=== PATIENT | male | born 1980 | race Two or more races ===

== ENCOUNTER 2024-04-17 19:14 | Inpatient (IN) | payer BC, SELFPAY ==
[2024-04-17 19:15] VITALS: BMI 32.9
--- NOTE | 2024-04-17 19:23 | EDNOTE_ITS ---
ED Headache RME/HPI General Chief Complaint: Headache Stated Complaint: POSSIBLE TIA Time Seen by Provider: 04/17/24 19:27 Arrival date/time: 04/17/24 19:14 Limitations: no limitations RME / HPI RME / HPI Narrative: Dr. Adames's Main ED Evaluation: 43-year-old male with complaining of left lower extremity tingling that started at 2:00 yesterday afternoon. Today the patient states he had some right lower extremity tingling and right arm tingling. He was seen at the urgent care and told to come to the emergency department for possible stroke workup. Last known normal was yesterday afternoon at 2 PM. Related Data Previous Rx's ?Medication ?Instructions ?Recorded apixaban 5 mg (74 tabs) tablets in 5 mg PO BID #74 tabs 03/25/21 a dose pack (Eliquis DVT-PE Treat 30D Start) methocarbamol 500 mg tablet 500 mg PO TID #30 tabs 05/28/21 methylprednisolone 4 mg tablets in 4 mg PO QAM #21 tabs 05/28/21 a dose pack (Medrol (Luan)) Allergies Allergy/AdvReac Type Severity Reaction Status Date / Time No Known Allergies Allergy Verified 04/17/24 19:17 Review of Systems Review of Systems Systems Reviewed: All systems reviewed, normal except as documented Past Medical History Social History SMOKING STATUS: Never smoker ED Exam Narrative Physical exam: 1A: Level of Consciousness - Alert; keenly responsive + 0 1B: Ask Month and Age - Both Questions Right + 0 1C: Blink Eyes & Squeeze Hands - Performs Both Tasks + 0 2: Test Horizontal Extraocular Movements - Normal + 0 3: Test Visual Mckinney - No Visual Loss + 0 4: Test Facial Palsy (Use Grimace if Obtunded) - Normal symmetry + 0 5A: Test Left Arm Motor Drift - No Drift for 10 Seconds + 0 5B: Test Right Arm Motor Drift - No Drift for 10 Seconds + 0 6A: Test Left Leg Motor Drift - No Drift for 5 Seconds + 0 6B: Test Right Leg Motor Drift - No Drift for 5 Seconds + 0 7: Test Limb Ataxia (FNF/Heel-Wiggins) - No Ataxia + 0 8: Test Sensation - Normal; No sensory loss + 0 9: Test Language/Aphasia - Normal; No aphasia + 0 10: Test Dysarthria - Normal + 0 11: Test Extinction/Inattention - No abnormality + 0 NIHSS Score: 0 General Limitations: Present no limitations General appearance: Present alert and other (Sitting in wheelchair well-dressed no acute distress) Head Head exam: Present atraumatic Eye Eye exam: Present normal appearance, PERRL and EOMI ENT ENT exam: Present normal exam and mucous membranes moist Neck Neck exam: Present normal inspection and full ROM; Absent tenderness or lymphadenopathy Chest Chest inspection: Present normal inspection and symmetric chest wall rise Respiratory Respiratory exam: Present normal lung sounds bilaterally Cardiovascular Cardiovascular exam: Present regular rate, normal rhythm and normal heart sounds Abdominal Exam Abdominal exam: Present soft and normal bowel sounds Extremities Exam Extremities exam: Present normal inspection and full ROM Back Exam Back exam: Present normal inspection and full ROM Neurological Exam Neurological exam: Present alert, oriented X3 and CN II-XII intact Psychiatric Psychiatric exam: Present normal affect and normal mood; Absent depressed, agitated or anxious Skin Skin exam: Present warm, dry, intact and normal color Course Quality Measures none Orders Category Date Time Status Bedside Blood Glucose NOW Care 04/17/24 19:27 Active COVID-19 Screening Questionnaire NOW Care 04/18/24 00:00 Active 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 Worker Supervisor NOW Care 04/17/24 19:27 Active Continuous Pulse Oximetry NOW Care 04/17/24 19:27 Completed Decision to Admit X1 Care 04/18/24 00:00 Active EKG (ED ONLY) *Do not use* NOW Care 04/17/24 19:28 Completed In and Out Catheter NEEDED Care 04/17/24 19:27 Active Insert IV NOW Care 04/17/24 19:27 Active NIH Stroke Scale now Care 04/17/24 19:27 Active NPO NOW Care 04/17/24 19:27 Active Nurse Swallow Screen x1 Care 04/17/24 19:27 Active Consult to Neurology / Tele-Neurology Routine Cons 04/17/24 19:[address] angio stroke protocol Stat Exams 04/17/24 19:[address] stroke protocol Stat Exams 04/17/24 19:27 Completed EKG (ED Only) Stat Exams 04/17/24 19:27 Draft CBC Stat Lab 04/17/24 19:42 Completed Comprehensive Metabolic Panel Stat Lab 04/17/24 19:42 Completed Drug Screen,Urine Stat Lab 04/17/24 19:27 Ordered Magnesium Stat Lab 04/17/24 19:42 Completed Partial Thromboplastin Time Stat Lab 04/17/24 19:42 Completed Prothrombin Time with INR Stat Lab 04/17/24 19:42 Completed Troponin I Stat Lab 04/17/24 19:42 Completed Ondansetron Inj [Zofran Inj] Med 04/17/24 19:27 Active 4 mg IV Q4HR PRN Oxygen Delivery NOW RT 04/17/24 19:27 Active Vital Signs Vital signs: Vital Signs Temperature 98.5 F 04/17/24 19:36 Pulse Rate 67 04/17/24 19:36 Respiratory Rate 18 04/17/24 19:36 Blood Pressure 145/81 H 04/17/24 19:36 Pulse Oximetry (%) 96 04/17/24 19:36 Oxygen Delivery Method Room Air 04/17/24 19:36 Headache MDM Narrative MDM Narrative:: Differential diagnosis includes electrolyte normality, dehydration, hyper- or hypoglycemia, TIA, stroke, altered tenet neurological type symptoms to include multiple sclerosis, rash, Patient data External records reviewed:: [facility] previous records (Per chart review, patient has no relevant previous ED visits.) Clinical information provided by:: patient Social determinants that could affect healthcare access:: none How is presenting disease/condition affected by chronic disease/condition?: no chronic disease Evaluation data The following diagnostics were reviewed and interpreted by me:: lab results, radiology exam(s) and EKG tracing(s) Lab and/or radiology exams considered but not ordered:: none Interpretation Summary: CBC is normal, CMP is normal, PT and INR are normal, PTT is normal, according to my interpretation. EKG done at 1937, NSR, rate of 75, RBBB, no ST elevations or depressions, no STEMI, according to my interpretation. [facility] Report Signed Patient: KATHY DUMONT [facility]. Record#: [id number] Birthdate: 1980 Age/Sex: 43 / M Location: [facility] Attending Dr: Ordering Physician: Mara Adames MD Date of Service: 04/17/24 Procedure(s): CT stroke protocol Accession Number(s): [id number] cc: Dhaval Fernandez MD; Mara Adames MD~ Examination: CT brain head without contrast. 2-D sagittal coronal reconstructions Date and time of exam:April 17, 2024 at 1948 hrs. Indications: Stroke alert, onset extremity paresthesias, lower extremities beginning 2 days ago CTDI: vol (mGy):50.7 DLP: (mGycm):1037 Technique: Multiple CT axial sections of the brain have been obtained, 5 mm slice thickness. Contrast has not been administered. 2-D sagittal, coronal reconstructions have been obtained Low dose protocols were performed. One or more of the following dose reduction techniques were used; automated exposure control, adjustment of the mA and/or KV according to patient size, use of iterative reconstruction technique. Findings: No significant ventricular enlargement. Intra-axial or extra-axial hemorrhage density is not seen. No mass effect or midline shift Basal cisterns are not remarkable. Fourth ventricle is midline. Cranial vault intact. Impression: Negative for acute hemorrhage, mass effect or midline shift As clinically warranted, brain MRI MRA, stroke protocol, would best assess for demyelinating disease, acute ischemic change Dictated By: Dhaval Fernandez MD Signed By: <Electronically signed by Dhaval Fernandez MD in OV> 04/17/241954 [facility] Report Signed Patient: KATHY DUMONT [facility]. Record#: [id number] Birthdate: 1980 Age/Sex: 43 / M Location: [facility] Attending Dr: Ordering Physician: Mara Adames MD Date of Service: 04/17/24 Procedure(s): CT angio stroke protocol Accession Number(s): [id number] cc: Dhaval Fernandez MD; Chang Fox MD; Mara Adames MD~ Examination: CTA carotids with intravenous contrast CTA brain, head with intravenous contrast. 2-D sagittal, coronal reconstructions. 3-D reconstructions. Exam date and time: April 17, 2024 1951 hrs. Indications: Stroke alert, lower extremity paresthesias focal neurologic deficit today CTDI: vol (mGy) 10.8 DLP: (mGycm) 540 Technique: Multiple CTA axial brain, head carotid images post intravenous contrast injection 75 cc, Isovue-370. 2-D sagittal, coronal reconstructions. 3-D reconstructions, 3-D post processing including vascular maximum intensity projection images. Low dose protocols were performed. One or more of the following dose reduction techniques were used; automated exposure control, adjustment of the mA and/or KV according to patient size, use of iterative reconstruction technique. Findings: The study is severely limited secondary to contrast bolus timing error The timing emphasizes the venous phase and there is significantly reduced opacification of the neck and cerebral vessels No gross carotid or vertebral stenoses in the neck There is less filling on the 3-D images in the left middle cerebral artery distribution which is not appreciated on the axial images Impression: The study is severely limited secondary to contrast bolus timing error Dictated By: Dhaval Fernandez MD Signed By: <Electronically signed by Dhaval Fernandez MD in OV> 04/17/242119 Medications / Prescriptions Medications or Prescriptions considered but not ordered:: none Medication administrations:: Medication Administration History Ondansetron HCl (Ondansetron Inj 2 Mg/Ml Inj 2 Ml) 4 mg IV Q4HR PRN PRN Reason: NAUSEA OR VOMITING Stop: 05/17/24 19:26 see above Consultations Consultation(s) initiated? (list below): Yes Consultation #1 (Physician, Specialty, Details): Discussed case with [Dr. Ramachandran] from [teleneurology] regarding [consultation]. Discussed patients ED course, exam findings, labs, and radiology results. Recommends admitting the patient for a stroke work-up. Consultation #2 (Physician, Specialty, Details): Discussed case with [the resident physician, attending Dr. Sanchez] from Hospitalist service regarding admission. Discussed patients ED course, exam findings, labs, and radiology results. The Hospitalist [agrees, declines] to accept the patient for admission. Time: 00:07 Diagnosis Differential diagnosis headache: other (see above in MDM) Most likely diagnosis given after review of the tests above:: see below Admission Indicated Admission indicated?: indicated Admission Request Was there a request for admission?: Yes Admission Attestation Admission request attestation: Discussed case with [] from Hospitalist service regarding admission. Discussed patients ED course, exam findings, labs, and radiology results. The Hospitalist [agrees,declines] to accept the patient for admission. Disposition Plan Disposition Plan: Admit Critical Care Time Critical Care Time Critical Care Time: Yes Total Critical Care Time (min.): 40 Attestation: The high probability of sudden, clinically significant deterioration in the patient?s condition required the highest level of my preparedness to intervene urgently. The services I provided to this patient were to treat and/or prevent clinically significant deterioration. Services included the following: chart data review, reviewing nursing notes and/or old charts, documentation time, executive consultant collaboration regarding findings and treatment options, medication orders and management, direct patient care, vital sign assessments and ordering, interpreting and reviewing diagnostic studies and lab tests. Aggregate critical care time includes only time during which I was engaged in work directly related to the patient?s care, as described above, whether at bedside or elsewhere in the Emergency Department. It did not include time spent performing other reported procedures or the services of residents, students, nurses or physician assistants. Discharge Plan Prescriptions/Referrals Prescriptions/Med Rec: No Action Eliquis DVT-PE Treat 30D Start 5 mg (74 tabs) tablets,dose pack 5 mg PO BID Qty: 74 0RF Rx Instructions: 10 mg twice daily for first 7 days, then 5 mg twice daily. methocarbamol 500 mg tablet 500 mg PO TID Qty: 30 0RF methylprednisolone [Medrol (Luan)] 4 mg tablets,dose pack 4 mg PO QAM Qty: 21 0RF Rx Instructions: follow instructions Referrals: Chang Fox([facility])MD [Primary Care Provider] - In 1 week Patient/Caregiver Discharge Instructions Print Language: Maori
--- NOTE | 2024-04-17 19:27 | XR_ITS ---
Examination: CT brain head without contrast. 2-D sagittal coronal reconstructions Date and time of exam:April 17, 2024 at 1948 hrs. Indications: Stroke alert, onset extremity paresthesias, lower extremities beginning 2 days ago CTDI: vol (mGy):50.7 DLP: (mGycm):1037 Technique: Multiple CT axial sections of the brain have been obtained, 5 mm slice thickness. Contrast has not been administered. 2-D sagittal, coronal reconstructions have been obtained Low dose protocols were performed. One or more of the following dose reduction techniques were used; automated exposure control, adjustment of the mA and/or KV according to patient size, use of iterative reconstruction technique. Findings: No significant ventricular enlargement. Intra-axial or extra-axial hemorrhage density is not seen. No mass effect or midline shift Basal cisterns are not remarkable. Fourth ventricle is midline. Cranial vault intact. Impression: Negative for acute hemorrhage, mass effect or midline shift As clinically warranted, brain MRI MRA, stroke protocol, would best assess for demyelinating disease, acute ischemic change
--- NOTE | 2024-04-17 19:27 | XR_ITS ---
Examination: CTA carotids with intravenous contrast CTA brain, head with intravenous contrast. 2-D sagittal, coronal reconstructions. 3-D reconstructions. Exam date and time: April 17, 2024 1951 hrs. Indications: Stroke alert, lower extremity paresthesias focal neurologic deficit today CTDI: vol (mGy) 10.8 DLP: (mGycm) 540 Technique: Multiple CTA axial brain, head carotid images post intravenous contrast injection 75 cc, Isovue-370. 2-D sagittal, coronal reconstructions. 3-D reconstructions, 3-D post processing including vascular maximum intensity projection images. Low dose protocols were performed. One or more of the following dose reduction techniques were used; automated exposure control, adjustment of the mA and/or KV according to patient size, use of iterative reconstruction technique. Findings: The study is severely limited secondary to contrast bolus timing error The timing emphasizes the venous phase and there is significantly reduced opacification of the neck and cerebral vessels No gross carotid or vertebral stenoses in the neck There is less filling on the 3-D images in the left middle cerebral artery distribution which is not appreciated on the axial images Impression: The study is severely limited secondary to contrast bolus timing error
--- NOTE | 2024-04-17 19:27 | EKG_ITS ---
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
--- NOTE | 2024-04-17 19:28 | PC.NURSE ---
stroke consult Case # [id number]
[2024-04-17 19:36] VITALS: BP 145/81; PULSE 67; RESP 18; TEMP 36.9; O2SAT 96
[2024-04-17 19:52] LABS: Basophils % (Auto) 0 % (0-2.5); Eosinophils # (Auto) 0.1 Thou/mm3 (0.0-0.5); Eosinophils % (Auto) 2 % (0-10); Hemoglobin 13.6 g/dL (13.5-16.0); Immature Granulocytes % (Auto) 0 % (0-0); Immature Granulocytes Auto 0.02 Thou/mm3 (0.00-0.00); Lymphocytes # (Auto) 2.3 Thou/mm3 (1.0-4.8); Lymphocytes % (Auto) 33 % (10-50); Mean Corpuscular HGB Conc 34.9 g/dl (31.0-37.0); Mean Corpuscular Hemoglobin 30.9 pg (25.0-35.0); Mean Corpuscular Volume 89 fL (80-100); Monocytes # (Auto) 0.5 Thou/mm3 (0.0-0.8); Monocytes % (Auto) 8 % (0-12); Neutrophils % (Auto) 57 % (37-80); Nucleated Red Blood Cell % 0 /100 WBC (0); Platelet Count 242 Thou/mm3 (140-440); RDW Standard Deviation 37.5 fL (35.1-43.9)
[2024-04-17 20:10] LABS: Alanine Aminotransferase 37 U/L (10-49); Albumin, Serum 4.3 gm/dL (3.5-5.0); Albumin/Globulin Ratio 1.7 (1.2-2.2); Alkaline Phosphatase 89 U/L (46-116); Anion Gap 8 (7-16); Aspartate Amino Transferase 29 U/L (0-34); BUN/Creatinine Ratio 12 Ratio (12-20); Bilirubin,Total 0.3 mg/dL (0.3-1.2); Blood Urea Nitrogen 12 mg/dL (9-23); Calcium 9.4 mg/dL (8.3-10.6); Calcium (Corrected) 9.4 mg/dL (8.5-10.1); Carbon Dioxide 26.2 mMol/L (20.0-31.0); Chloride 104 mMol/L (98-107); Estimated Creatinine Clearance 119.8 mL/min (>60); Globulin 2.6 gm/dL (2.3-3.5); Glucose 135 mg/dL (74-106); Osmolality,Calculated 277 (275-295); Sodium 138 mMol/L (136-145); Total Protein 6.9 gm/dL (5.7-8.2); Troponin I < 0.020 ng/mL (0.0-0.045); eGFR > 60 See Note
[2024-04-17 20:14] VITALS: BP 134/78; PULSE 68; RESP 18; TEMP 36.7; O2SAT 97
[2024-04-17 20:16] LABS: INR 0.9 (0.9-1.3); Partial Thromboplastin Time 23.6 Seconds (22.0-36.0); Prothrombin Time 9.8 Seconds (9.0-12.2)
--- NOTE | 2024-04-17 21:56 | ESCONSULT_ITS ---
Tele Neuro Consultation Consultation Date 04/17/24 Most Recent Vital Signs Last Vital Signs Temp 98.1 F 04/17/24 20:14 Pulse 68 04/17/24 20:14 Resp 18 04/17/24 20:14 BP 134/78 H 04/17/24 20:14 Pulse Ox 97 04/17/24 20:14 O2 Del Method Room Air 04/17/24 20:14 Laboratory-Coagulation Panel PT 9.8 Seconds (9.0-12.2) 04/17/24 19:42 INR 0.9 (0.9-1.3) 04/17/24 19:42 APTT 23.6 Seconds (22.0-36.0) 04/17/24 19:42 Consultation Narrative [facility] Tele[facility]urology Consult Services Stat Consult Patient Name:???Brady Cabrera Sr Date of :???1980 Identification Number:??? Date of Service:???04/17/2024 19:28:02 Diagnosis:?G45.9 - Transient cerebral ischemic attack, unspecified Impression 43M with PMHx DVT previously on Eliquis, BPPV, presents due to transient neurological symptoms. Patient says he had part of a [employer] energy drink, was talking to his , then suddenly felt weird, with tingling started on his right leg, up to his right side, then to R hand which felt very numb, then to R face, then started feelign numbness L leg, and then ascended, then with severe headache. He went to work, at which point his speech became abnormal, he couldn't get his words out, garbled. All symptoms then resolved, within 45 minutes, and have not reoccurred. He came in today at his 's urging and at recommendation of an urgent care doctor. Never had these symptoms before. He never gets headaches. CT complete and read as negative. CTA non-diagnostic. Exam is WNL. Presentation is concerning for seizure, vs stroke or high-risk TIA. Will need admission for workup including brain and vessel imaging. ? Recommendations: Our recommendations are outlined below. Diagnostic Studies :MRI head with and without contrast MRA head without contrast MRA neck with contrast Routine EEG Laboratory Studies :Lipid panelI orderedHemoglobin A1c TSH Antithrombotic Medication :Statins for LDL goal less than 70 ASA 325mg and Plavix 300mg PO; followed by ASA 81mg and PLavix 75 mg daily for 20 days Nursing Recommendations :IV Fluids, avoid dextrose containing fluids, Maintain euglycemia Neuro checks q4 hrs x 24 hrs and then per shift Head of bed 30 degrees Continue with Telemetry Neurochecks Q4 hours Consultations :Recommend Speech therapy if failed dysphagia screen Physical therapy/Occupational therapy DVT Prophylaxis :Lovenox or LMW Heparin Disposition :Neurology will follow Outpatient Neurology follow up in 3-6 weeks Metrics: Dispatch Time: 04/17/2024 19:28:02 Callback Response Time: 04/17/2024 19:30:12 ED Physician not notified of diagnostic impression and management plan because not available CT HEAD: As Per Radiologist CT Head Showed No Acute Hemorrhage or Acute Core Infarct Chief Complaint: left sided leg weakness and arm weakness, then today tingling/weakness moved also to the right side. Now bilateral weakness/tingling in BUE & BLE. TLKW: 2pm yesterday >24hours ago Hx. of DVT, on Eliquis CTH - ordered History of Present Illness:Patient is a 43 year old Male. 43M with PMHx DVT previusly on Eliquis, BPPV, presents with progressive weakness and numbness. Symptoms began yesterday at 2pm involving LUE and LLE, now bilateral involving all extremities. SOB yesterday, no chest pain, headache, no diarrhea, no recent cold or infection. Patient says he had part of a [employer] energy drink, was talking to his , then suddenly felt weird, and then tingling started on his right leg, up to his right side, then to R hand which felt very numb, then to R face, then started feelign numbness L leg, and then ascended, then with severe headache, then his speech became abnormal, he couldn't get his words out, garbled. He then went back to normal completely. He came in today at his 's urging and at recommendation of an urgent care doctor. Never had these symptoms before. He never gets headaches. CT complete and read as negative. CTA non-diagnostic. ? Past Medical History: ?There is no history of Atrial Fibrillation ?There is no history of Stroke ?There is no history of Seizures Medications: No Anticoagulant use? Antiplatelet use:?Yes?aspirin Reviewed EMR for current medications Allergies:? NKDA Social History: Smoking: No Family History: There is no family history of premature cerebrovascular disease pertinent to this consultation ROS : 14 Points Review of Systems was performed and was negative except mentioned in HPI. Past Surgical History: There Is No Surgical History Contributory To Today?s Visit ? Examination: BP(134/78),?Pulse(68),?Blood Glucose(130) 1A: Level of Consciousness - Alert; keenly responsive?+ 0 1B: Ask Month and Age - Both Questions Right?+ 0 1C: Blink Eyes & Squeeze Hands - Performs Both Tasks?+ 0 2: Test Horizontal Extraocular Movements - Normal?+ 0 3: Test Visual Mckinney - No Visual Loss?+ 0 4: Test Facial Palsy (Use Grimace if Obtunded) - Normal symmetry?+ 0 5A: Test Left Arm Motor Drift - No Drift for 10 Seconds?+ 0 5B: Test Right Arm Motor Drift - No Drift for 10 Seconds?+ 0 6A: Test Left Leg Motor Drift - No Drift for 5 Seconds?+ 0 6B: Test Right Leg Motor Drift - No Drift for 5 Seconds?+ 0 7: Test Limb Ataxia (FNF/Heel-Wiggins) - No Ataxia?+ 0 8: Test Sensation - Normal; No sensory loss?+ 0 9: Test Language/Aphasia - Normal; No aphasia?+ 0 10: Test Dysarthria - Normal?+ 0 11: Test Extinction/Inattention - No abnormality?+ 0 NIHSS Score:?0 This consult was conducted in real time using interactive audio and video technology. Patient was informed of the technology being used for this visit and agreed to proceed. Patient located in hospital and provider located at home/office setting. Patient is being evaluated for possible acute neurologic impairment and high probability of imminent or life - threatening deterioration.I spent total of 35 minutes providing care to this patient, including time for face to face visit via telemedicine, review of medical records, imaging studies and discussion of findings with providers, the patient and / or family. Dr Mignon Ramachandran [facility] For Inpatient follow-up with [facility] physician please call [facility] at . As we are not an outpatient service for any post hospital discharge needs please contact the hospital for assistance. If you have any questions for the [facility] physicians or need to reconsu lt for clinical or diagnostic changes please contact us via [facility] at .
[2024-04-17 22:32] VITALS: BP 127/69; PULSE 56; RESP 16; O2SAT 97
[2024-04-18] VITALS (9 sets, daily range): BP systolic 104–132; BP diastolic 64–81; PULSE 51–70; RESP 14–25; TEMP 36.1–36.9; O2SAT 97–99
--- NOTE | 2024-04-18 | XR_ITS ---
Examination: MRI brain without intravenous contrast. Date and time of exam: April 18, 2024 1022 hrs. Indications: Slurred speech, right leg numbness headache onset today, stroke alert April 17, 2024, onset focal neurologic deficit beginning April 15, 2024 Technique: Multiple axial and sagittal images of the brain obtained. Siemens high-resolution 1.5 Aniyah short bore scanners utilized. Sagittal sections, T1-weighted, TR 500, TE 14, are performed. Axial sections proton-density and T2-weighted have been obtained. Inversion recovery axial images, TR 9, 260, TE 111, TI 2500. Diffusion weighted images, axial sections, TR 4800, TE 128, B value 1000 Axial sections, ADC map, TR 4800, TE 128 Findings: Enlargement of the sella turcica is not present. The optic chiasm and infundibular are not remarkable. Prepontine and interpeduncular cisterns are not enlarged. There is no localized enlargement of the medulla or chirag. Fourth ventricle and cerebellar tonsils appear normal in position. No subacute area of hemorrhage density is seen. Mass in the cerebellopontine angle region is not evident. Globes symmetrical. Orbital musculature including medial lateral rectus muscles do not exhibit abnormality. Diffusion-weighted images demonstrate no focus of restricted diffusion. Increased white matter signal evident, scattered punctate foci increased signal in the frontal parietal white matter, for instance FLAIR images 18, 19, 20 Mass effect upon the ventricular system is not identified. Impression: Scattered punctate foci increased signal in the cerebral white matter, demyelinating disease pattern
--- NOTE | 2024-04-18 00:48 | PD.RESHP ---
Documentation for date of: 04/18/24 HPI History of Present Illness Chief complaint: Rt sided Numbenss and slurred speech for 45 minutes History of present illness: HPI: A 43-year-old male patient with past medical history of DVT in 2020 was on Eliquis for 1 year, presented to the ED due to sudden onset of right leg numbness that started suddenly and continued to worsen to involve with right upper extremity. Patient reported that the symptoms started at 2:30 PM on . He reported that the numbness continued to worsen to involve his right upper extremity and also his face associated with headache and slurred speech. Patient reported that the numbness also continued to spread to his left upper extremity. He reported that his symptoms started after he took a sip of his energy drink which she drink every day with food. Patient denied any difficulty swallowing, blurry vision, tinnitus, loss of balance with dizziness. Patient denied any nausea or vomiting denied any seizure activity or loss of consciousness. Patient went to the urgent care and which recommended him to come to the ED to rule out stroke. On review of other system patient reported that he has some episodes of heart racing however he denied any chest pain or shortness of breath. Patient denied any fever or chills, denied any abdominal pain and denied any cough or congestion. Home medications: Mushroom Gummies ED course: At the ED patient was found to have blood pressure of 145/81, other vitals within normal limits. CBC within normal values, coagulation study within normal limits, biochemistry was only significant of blood glucose of 135. Urine drug screen still pending. CT brain was negative for any hemorrhage or mass effect. CT head and neck angiography was limited because of timing air. EKG was only significant for right bundle branch block ischemic changes and no arrhythmias. Teleneurologist consultation was done and which they recommended to do stroke workup and also to rule out seizure episodes. For that reason the recommended MRI brain with and without contrast and MRA head and neck without contrast. They also recommended EEG for further evaluation. PMH:Remote history of DVT in the right leg resolved with Eliquis Social hx: Alcohol:Denied Tobacco:Denied Illicit drugs:Denied Allergies:NKA Review of Systems Review of Systems Systems Reviewed: All systems reviewed, normal except as documented Exam Vital Signs Temp Pulse Resp BP Pulse Ox O2 Del Method 98.1 F 52 L 16 132/70 H 98 Room Air 04/17/24 20:14 04/18/24 00:15 04/18/24 00:15 04/18/24 00:15 04/18/24 00:15 04/18/24 00:15 Narrative Exam GEN: AOx3, able to speak full sentences HEENT: NC/AC, PERRLA, oral mucosa moist, neck supple CVS: RRR, S1-S2 present, no murmurs appreciated RESP: CTAB GI: soft,non distended, non tender, NBS MSK: able to move all 4 limbs, no lower extremity edema SKIN: warm and dry 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 Results: Labs 04/17/24 19:42 04/17/24 19:42 Labs: Short CBC 04/17/24 Range/Units 19:42 WBC 7.0 (3.8-10.6) Thou/mm3 Hgb 13.6 (13.5-16.0) g/dL Hct 39.0 L (41.0-53.0) % Plt Count 242 (140-440) Thou/mm3 BMP 04/17/24 19:42 Sodium 138 Potassium 4.0 Chloride 104 Carbon Dioxide 26.2 BUN 12 Creatinine 1.0 Glucose 135 H Calcium 9.4 Cardiac Enzymes 04/17/24 Range/Units 19:42 Troponin I < 0.020 (0.0-0.045) ng/mL Liver Function 04/17/24 Range/Units 19:42 Total Bilirubin 0.3 (0.3-1.2) mg/dL AST 29 (0-34) U/L ALT 37 (10-49) U/L Alkaline Phosphatase 89 (46-116) U/L Albumin 4.3 (3.5-5.0) gm/dL Quality Measures Quality Measures none Medications Home Medications and Allergies Allergies Allergy/AdvReac Type Severity Reaction Status Date / Time No Known Allergies Allergy Verified 04/17/24 19:17 Visit Medications Ondansetron HCl (Ondansetron Inj 2 Mg/Ml Inj 2 Ml) 4 mg IV Q4HR PRN PRN Reason: NAUSEA OR VOMITING Stop: 05/17/24 19:26 Assessment & Plan Plan A 43-year-old male patient with past medical history of DVT in 2020 was on Eliquis for 1 year, presented to the ED due to sudden onset of right leg numbness that started suddenly and continued to worsen to involve with right upper extremity. Patient was admitted to R/o stroke vs Seizure episode. Assessment and plan #Stroke versus TIA R/O #Seizure Patient presented with numbness that started in the right side of his leg, continue to worsen to right upper extremity and his face. Continue to spread to his left side of the body associated with slurred speech and headache. CT brain was negative for any hemorrhage or mass effect Symptoms resolved within 45 minutes, History of palpitation, remote history of DVT at age less than 40 years old CMP and CBC within normal limits Patient was started on aspirin 325 x 1, Plavix 300 mg p.o. x 1 Plan ? Teleneurologist was consulted recommended to admit the patient for stroke versus seizures rule out ? MR brain, MRA brain, ordered still pending ? EEG was ordered ? In-house neurologist Dr Thorpe was consulted, pending recommendations ? Aspirin 81 mg p.o. daily, Plavix 75 mg p.o. daily ? Atorvastatin 80 mg p.o. daily ? Seizures precautions, neurocheck every 4 hours for 1 day then change to every shift ? Echo with bubble study was ordered ? Keep head elevated above 30 degrees ? Keep patient euglycemic, euthermic give Tylenol if potassium pressure above 100.5 ?IV NS 75 mL/h ?Speech and physical therapist was ordered #History of palpitation #Right bundle branch block Patient reported some episodes of palpitation however denied any dizziness or loss of balance or chest pain Plan ? Telemetry monitoring ?Consider consulting [employer] operations consultant if clinically warranted #History of DVT in 2020 Patient reported having DVT in his right leg and provoked, used Eliquis for 1 year and was discontinued by the [employer] operations consultant Dr. Azar Plan ? Continue monitoring Hospital Maintenance: FEN: Regular diet after passing bedside swallow eval DVT ppx: Heparin subcu GI ppx: Protonix IV lines: PIV Teresa: None Code status: Full code Dispo: Telemetry - Patient's plan and care discussed with my attending, Dr. Daniel Dowd MD Internal Medicine PGY-2 Attending Provider Attestation/Addendum 43-year-old male with past medical history of DVT previously on Eliquis in 2020 presented to the ED with chief complaint right upper and lower extremity numbness that have been worsening for the last few days with associated headache and slurred speech. Patient went to urgent care and was recommended to come to the ED for stroke rule out. CT head was completed and negative, CTA head and neck showed no acute lesions or stenoses. Teleneurology was consulted in the ED and recommended further workup for seizure versus stroke. At the time of my evaluation, NIHSS score of 0. Will admit patient for further stroke versus seizure workup including echo, MRI of brain, EEG and will be initiated on aspirin and Plavix as per teleneurology recommendations. Chauncey Sanchez MD
--- NOTE | 2024-04-18 00:58 | ECHO_ITS ---
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 16 - 28 cm?/m? Ascending Aorta Diameter 2.6 cm M-MODE Aortic Root Diameter MM 2.8 cm LA Systolic Diameter MM 4.0 cm LA Ao Ratio MM 1.4 AV Cusp Separation MM 2.3 cm DOPPLER AV Peak Velocity 138.0 cm/s AV Peak Gradient 7.6 mmHg AV Mean Gradient 4.0 mmHg AV Velocity Time Integral 30.9 cm LVOT Peak Velocity 106.0 cm/s LVOT Peak Gradient 4.5 mmHg LVOT Velocity Time Integral 23.4 cm LVOT Cardiac Index 1470.6 cm?/min?m? AV Area Cont Eq vti 1.9 cm? AV Area Cont Eq pk 2.0 cm? MV Peak Velocity 70.3 cm/s MV Peak Gradient 2.0 mmHg MV Mean Velocity 40.3 cm/s MV Mean Gradient 1.0 mmHg MV Area PHT 3.7 cm? Mitral E Point Velocity 64.5 cm/s Mitral A Point Velocity 52.9 cm/s Mitral E to A Ratio 1.2 LV E' Lateral Velocity 14.1 cm/s Mitral E to LV E' Lateral Ratio 4.6 LV E' Septal Velocity 8.7 cm/s Mitral E to LV E' Septal Ratio 7.4 TR Peak Velocity 160.0 cm/s TR Peak Gradient 10.2 mmHg FINDINGS Left Ventricle Normal left ventricular size, wall thickness, systolic function with no obvious regional wall motion abnormalities. The ejection fraction is visually estimated at 60-65 %. Right Ventricle The right ventricle is normal in size and systolic function. Left Atrium The left atrium is normal by two-dimensional, color flow and Doppler imaging with no structural abnormalities, no thrombus formation present. Right Atrium The right atrium is normal by two-dimensional imaging, color flow and Doppler imaging with no struct ural abnormalities, no thrombus formation present. Atrial Septum The interatrial septum appears normal with no evidence of a shunt. Aorta The aorta is normal by two-dimensional, color flow and Doppler interrogation. Mitral Valve The mitral valve is normal by two-dimensional, color flow and Doppler interrogation. There is trace mitral valve regurgitation. Aortic Valve The aortic valve is trileaflet and normal by two-dimensional, color flow and Doppler interrogation. There is no significant aortic valve regurgitation. Tricuspid Valve The tricuspid valve is normal by two-dimensional, color flow and Doppler interrogation. There is no significant tricuspid valve regurgitation. Pulmonic Valve There is no significant pulmonic valve regurgitation. Vessels The pulmonary artery appears normal. The inferior vena cava pulmonary and hepatic veins appear katerina l. Pericardium The pericardium is normal by two-dimensional imaging. There is no significant pericardial effusion. CONCLUSIONS Negative bubble study. No evidence of PFO or ASD. Normal LV size and function. Estimated EF 60-65% Normal RV size and function Trace MR. Florence Campa (Electronically Signed) Final Date: 20 April 2024 13:41
[2024-04-18] MEDS: Aspirin 325 MG TABLET PO (01:14)
[2024-04-18] MEDS: CLOPIDOGREL BISULFATE 75 MG TABLET 300 MG PO (01:17)
[2024-04-18] MEDS: SODIUM CHLORIDE 0.9% 1000 ML 1,000 ML 75 ML IV (02:59)
[2024-04-18 05:22] LABS: Basophils % (Auto) 1 % (0-2.5); Eosinophils # (Auto) 0.1 Thou/mm3 (0.0-0.5); Eosinophils % (Auto) 2 % (0-10); Hematocrit 41.4 % (41.0-53.0); Hemoglobin 14.2 g/dL (13.5-16.0); Immature Granulocytes % (Auto) 0 % (0-0); Immature Granulocytes Auto 0.01 Thou/mm3 (0.00-0.00); Lymphocytes % (Auto) 35 % (10-50); Mean Corpuscular HGB Conc 34.3 g/dl (31.0-37.0); Mean Corpuscular Hemoglobin 30.4 pg (25.0-35.0); Mean Corpuscular Volume 89 fL (80-100); Monocytes # (Auto) 0.5 Thou/mm3 (0.0-0.8); Monocytes % (Auto) 9 % (0-12); Neutrophils % (Auto) 53 % (37-80); Nucleated Red Blood Cell % 0 /100 WBC (0); Platelet Count 220 Thou/mm3 (140-440); RDW Standard Deviation 37.7 fL (35.1-43.9); Red Blood Count 4.67 Miln/mm3 (4.50-5.90); White Blood Count 5.6 Thou/mm3 (3.8-10.6)
--- NOTE | 2024-04-18 05:36 | PC.NURSE ---
pt has been sleeping. Arouses easily. no changes.
[2024-04-18 06:00] LABS: Alanine Aminotransferase 40 U/L (10-49); Albumin, Serum 4.4 gm/dL (3.5-5.0); Albumin/Globulin Ratio 1.8 (1.2-2.2); Alkaline Phosphatase 80 U/L (46-116); Anion Gap 7 (7-16); Aspartate Amino Transferase 29 U/L (0-34); BUN/Creatinine Ratio 10 Ratio (12-20); Bilirubin,Total 0.5 mg/dL (0.3-1.2); Blood Urea Nitrogen 10 mg/dL (9-23); Calcium 9.3 mg/dL (8.3-10.6); Calcium (Corrected) 9.3 mg/dL (8.5-10.1); Carbon Dioxide 27.8 mMol/L (20.0-31.0); Cardiac Risk Estimate 4.3 RATIO (4.0-6.7); Chloride 105 mMol/L (98-107); Cholesterol 159 mg/dL (132-200); Estimated Creatinine Clearance 119.8 mL/min (>60); Globulin 2.5 gm/dL (2.3-3.5); Glucose 91 mg/dL (74-106); HDL Cholesterol 37 mg/dL (40-60); LDL Cholesterol,Calculated 105 mg/dL (0-130); Magnesium 2.1 mg/dL (1.6-2.6); Osmolality,Calculated 278 (275-295); Potassium 4.5 mMol/L (3.4-5.1); Sodium 140 mMol/L (136-145); Total Protein 6.9 gm/dL (5.7-8.2); Triglycerides 84 mg/dL (30-150); eGFR > 60 See Note
[2024-04-18 06:01] LABS: Glucose Estimated Average 103 mg/dL (80-131); Hemoglobin A1C 5.2 % Hgb (4.8-6.0)
[2024-04-18 06:04] LABS: Amphetamine/Methamp Scrn,U Negative (Negative); Barbiturate Screen,Urine Negative (Negative); Benzodiazepines Screen,Urine Negative (Negative); Benzoylecgonine Screen, Ur Negative (Negative); Fentanyl Screen,Urine Negative (Negative); Opiate Screen,Urine Negative (Negative); THC Screen,Urine Negative (Negative)
[2024-04-18] MEDS: HEPARIN SOD INJ 5000 UNIT/ML VIAL SC ×3 (06:38→21:46)
--- NOTE | 2024-04-18 07:54 | PC.NURSE ---
ASSUMED CARE AT THIS TIME, PT DENIES ANY PAIN OR DISCOMFORT AT THIS TIME, HOWEVER, REPORTS THAT HE IS HAVING NUMBNESS IN HIS LEFT BIG TOE, HOWEVER IT HAS BEEN THERE FOR MORE THAN A FEW MONTHS. VSS ON TELE CALL [facility] IN [place].
[2024-04-18] MEDS: PANTOPRAZOLE 40 MG TABLET PO (09:47)
--- NOTE | 2024-04-18 13:10 | ESPR_ITS ---
<Statement entered by Flower Corey MD - 04/21/24 14:18> I reviewed above note and agree with findings and plans. I have also personally examined the patient with medicine team and went over assessment and plan with medical team including internship coordinator and resident physician. Documentation for date of: 04/18/24 Subjective Subjective Interval history: Patient seen today at the bedside found awake, alert, oriented x 3. States no active complaints at this time, states patient's presenting symptoms have resolved. Vital signs stable at this time, lab work unremarkable. At this time patient is pending MRI brain, echo with bubble study as part of stroke workup as well as pending EEG for seizure workup. Exam Vital Signs Temp Pulse Resp BP Pulse Ox O2 Del Method 96.9 F 60 19 128/81 97 Room Air 04/18/24 12:00 04/18/24 12:00 04/18/24 12:00 04/18/24 12:00 04/18/24 12:04/18/24 12:00 Narrative Exam Physical Exam GENERAL: NAD, AAOx3 HEENT: Moist mucosa. Eyes open, symmetrical, & clear CARDIO: Heart RRR, no obvious murmurs PULM: No noted coughing/dyspnea CTA B/L, no R/W/R GI: Abdomen soft, nondistended, no pain on palpation. BSx4 SKIN/MSK/EXT: No wounds/rashes/edema/amputations, no pain on palpation. Pedal pulses present B/L NEURO: AAOx3, no focal neuro deficits, able to move all 4 extremities Objective Labs 04/18/24 04:30 04/18/24 04:30 Labs: Laboratory Results - last 24 hr 04/17/24 04/18/24 04/18/24 19:42 04:30 05:20 WBC 7.0 5.6 RBC 4.40 L 4.67 Hgb 13.6 14.2 Hct 39.0 L 41.4 MCV 89 89 MCH 30.9 30.4 MCHC 34.9 34.3 RDW Std Deviation 37.5 37.7 Plt Count 242 220 Neut % (Auto) 57 53 Lymph % (Auto) 33 35 [place] % (Auto) 8 9 Eos % (Auto) 2 2 Baso % (Auto) 0 1 Neut # (Auto) 4.0 3.0 Lymph # (Auto) 2.3 2.0 [place] # (Auto) 0.5 0.5 Eos # (Auto) 0.1 0.1 Baso # (Auto) 0.0 0.0 Immature Gran # (Auto) 0.02 H 0.01 H Absolute Nucleated RBC 0.00 0.00 Immature Gran % 0 0 Nucleated RBC % 0 0 PT 9.8 INR 0.9 APTT 23.6 Sodium 138 140 Potassium 4.0 4.5 D Chloride 104 105 Carbon Dioxide 26.2 27.8 Anion Gap 8 7 BUN 12 10 Creatinine 1.0 1.0 Estim Creat Clear Calc 119.8 119.8 eGFR > 60 > 60 BUN/Creatinine Ratio 12 10 L Glucose [address] Glu mg/dL 103 Hemoglobin A1c 5.2 Calculated Osmolality 277 278 Calcium 9.4 9.3 Corrected Calcium 9.4 9.3 Magnesium 2.0 2.1 Total Bilirubin 0.3 0.5 AST 29 29 ALT 37 40 Alkaline Phosphatase 89 80 Troponin I < 0.020 Total Protein 6.9 6.9 Albumin 4.3 4.4 Globulin 2.6 2.5 Albumin/Globulin Ratio 1.7 1.8 Triglycerides 84 Cholesterol 159 LDL Cholesterol, Calc 105 HDL Cholesterol 37 L Cholesterol/HDL Ratio 4.3 Urine Opiates Screen Negative Urine Fentanyl Screen Negative Ur Barbiturates Screen Negative U Amphetamin/Meth Scrn Negative U Benzodiazepines Scrn Negative U Cocaine Metab Screen Negative U Marijuana (THC) Screen Negative Quality Measures Quality Measures none Assessment & Plan Assessment Current Active Medications: Generic Name Dose Route Start Last Admin Trade Name Freq PRN Reason Stop Dose Admin Acetaminophen 650 mg 04/18/24 00:51 Acetaminophen 325 Mg Tablet PO 05/18/24 00:50 Q6H PRN Fever >100.5 Acetaminophen 650 mg 04/18/24 00:51 Acetaminophen 325 Mg Tablet PO 05/18/24 00:50 Q6H PRN PAIN SCALE 1-3 (mild Aspirin 81 mg 04/19/24 09:00 Aspirin 81 Mg Chew PO 05/19/24 08:59 QDAY RUTH ANN Atorvastatin Calcium 80 mg 04/18/24 21:00 Atorvastatin Calcium 20 Mg Tablet PO 05/18/24 20:59 HS RUTH ANN Clopidogrel Bisulfate 75 mg 04/19/24 09:00 Clopidogrel Bisulfate 75 Mg Tablet PO 05/19/24 08:59 QDAY RUTH ANN Heparin Sodium (Porcine) 5,000 unit 04/18/24 06:00 04/18/24 06:38 Heparin Sod Inj 5000 Unit/Ml Vial SC 05/02/24 05:59 5,000 unit Q8HR RUTH ANN Administration Sodium Chloride 1,000 mls @ 75 mls/hr 04/18/24 01:00 04/18/24 02:59 Ns IV 04/18/24 14:19 75 mls/hr .[id number] RUTH ANN Administration Ondansetron HCl 4 mg 04/18/24 00:51 Ondansetron Inj 2 Mg/Ml Inj 2 Ml IV 05/18/24 00:50 Q6H PRN NAUSEA OR VOMITING Protocol Pantoprazole Sodium 40 mg 04/18/24 09:00 04/18/24 09:47 Pantoprazole 40 Mg Tablet PO 05/18/24 08:59 40 mg QDAY RUTH ANN Administration Sennosides 1 tab 04/18/24 00:51 Senna Tablet PO 05/18/24 00:50 QDAY PRN constipation Protocol Plan 43-year-old male patient with past medical history of DVT in 2020 was on Eliquis for 1 year, presented to the ED due to sudden onset of right leg numbness that started suddenly and continued to worsen to involve with right upper extremity. Patient was admitted for stroke workup versus TIA versus seizure. #Transient ischemic attack #Seizure- low suspicion Presentation patient started with numbness of the right lower extremity that progressed to the right upper extremity as well as associated slurred speech and headache, per the patient he states episodes lasted less than [address] brain was negative for any hemorrhage or mass effect Patient has remote history of DVT was on Eliquis for about 1 year and that was discontinued Patient was started on aspirin 325 x 1, Plavix 300 mg p.o. x 1 Per patient at this time is returned to baseline MRI brain showed Scattered punctate foci increased signal in the cerebral white matter, demyelinating disease pattern -Follow-up EEG -Neurology Dr Thorpe consulted, appreciate recommendations -Aspirin 81 mg -Plavix 75 mg -Atorvastatin 80 mg -Follow-up echo with bubble study -Seizure precautions -Aspiration precautions -Normal saline 75 cc/h -Pending speech and physical therapy evaluation -HOB more than 30 degrees -Euglycemia, euthermic #History of palpitation #Right bundle branch block Patient reported some episodes of palpitation however denied any dizziness or loss of balance or chest pain EKG showed right bundle branch block ?Telemetry monitoring #History of DVT in 2020 Patient reported having DVT in his right leg and provoked, used Eliquis for 1 year and was discontinued by the representative phlebotomy services Dr. Azar ?Will monitor at this time Case discussed with my attending Dr. Madhav Gamez MD PGY-1 Disposition: Telemetry Fluids: Normal saline Feeding: Regular after passing speech eval Thrombo prophylaxis: Heparin Gastric Ulcer prophylaxis: Pantoprazole Physical therapy: Pending eval Speech therapy: Pending CODE STATUS: Full code
--- NOTE | 2024-04-18 13:41 | PC.NURSE ---
RT AT BEDSIDE FOR EEG
--- NOTE | 2024-04-18 14:18 | PC.PT ---
PT eval only. Patient is I with transfers and ambulation without AD.
[2024-04-18] MEDS: ATORVASTATIN CALCIUM 20 MG TABLET 80 MG PO (21:46)
[2024-04-19] VITALS (9 sets, daily range): BP systolic 119–129; BP diastolic 68–77; PULSE 52–76; RESP 13–99; TEMP 35.9–36.1; O2SAT 93–99; BMI 32.7
--- NOTE | 2024-04-19 05:11 | PC.NURSE ---
Dr. Melo notified of heart rate in the 40s while patient resting with eyes closed, asymptomatic. Will continue to monitor.
[2024-04-19] MEDS: HEPARIN SOD INJ 5000 UNIT/ML VIAL SC ×3 (05:14→21:03)
[2024-04-19 06:36] LABS: Basophils % (Auto) 1 % (0-2.5); Eosinophils # (Auto) 0.1 Thou/mm3 (0.0-0.5); Eosinophils % (Auto) 2 % (0-10); Hematocrit 41.1 % (41.0-53.0); Hemoglobin 14.4 g/dL (13.5-16.0); Immature Granulocytes % (Auto) 0 % (0-0); Immature Granulocytes Auto 0.01 Thou/mm3 (0.00-0.00); Lymphocytes # (Auto) 1.8 Thou/mm3 (1.0-4.8); Lymphocytes % (Auto) 32 % (10-50); Mean Corpuscular Hemoglobin 31.4 pg (25.0-35.0); Mean Corpuscular Volume 90 fL (80-100); Monocytes # (Auto) 0.5 Thou/mm3 (0.0-0.8); Monocytes % (Auto) 9 % (0-12); Neutrophils # (Auto) 3.1 Thou/mm3 (1.8-7.7); Neutrophils % (Auto) 57 % (37-80); Nucleated Red Blood Cell % 0 /100 WBC (0); Platelet Count 208 Thou/mm3 (140-440); RDW Standard Deviation 37.9 fL (35.1-43.9); Red Blood Count 4.58 Miln/mm3 (4.50-5.90); White Blood Count 5.5 Thou/mm3 (3.8-10.6)
[2024-04-19 06:51] LABS: Alanine Aminotransferase 33 U/L (10-49); Albumin, Serum 4.2 gm/dL (3.5-5.0); Albumin/Globulin Ratio 1.7 (1.2-2.2); Alkaline Phosphatase 79 U/L (46-116); Anion Gap 7 (7-16); Aspartate Amino Transferase 23 U/L (0-34); BUN/Creatinine Ratio 15 Ratio (12-20); Bilirubin,Total 0.5 mg/dL (0.3-1.2); Blood Urea Nitrogen 15 mg/dL (9-23); Carbon Dioxide 28.3 mMol/L (20.0-31.0); Chloride 104 mMol/L (98-107); Estimated Creatinine Clearance 119.4 mL/min (>60); Globulin 2.5 gm/dL (2.3-3.5); Glucose 92 mg/dL (74-106); Osmolality,Calculated 278 (275-295); Phosphorous 3.2 mg/dL (2.4-5.1); Potassium 4.4 mMol/L (3.4-5.1); Sodium 139 mMol/L (136-145); Total Protein 6.7 gm/dL (5.7-8.2); eGFR > 60 See Note
[2024-04-19] MEDS: PANTOPRAZOLE 40 MG TABLET PO (08:47)
[2024-04-19] MEDS: CLOPIDOGREL BISULFATE 75 MG TABLET PO (08:47)
[2024-04-19] MEDS: ASPIRIN 81 MG CHEW PO (08:47)
--- NOTE | 2024-04-19 10:49 | PC.CC ---
Pt Brady Cabrera is a 43 yr old male admitted to hospitalist services for stroke vs TIA r/o, seizure, hx of palpitation, right bundle branch block. ASW met with pt and his Nirali Blackburn [phone] at bedside to complete initial assessment. At time of encounter pt is noted to be alert and oriented to person, place and situation. Pt able to confirm demographic information. Pt is from home [address] [facility], where he lives with his . Pt identifies his as surrogate DM. Pt is gainfully employed. At baseline pt is independent with ambulation and with completion of his ADLs. Pt reports that he is not diabetic and is not on dialysis. Pt does not require supplemental O2 in the home. Pt is followed by [facility] for primary care. At D/c pt will return home, with his providing transport. Pt inquired about referral for cardiology with Dr. Santana being preferred provider.
--- NOTE | 2024-04-19 10:57 | PC.NURSE ---
CALLED DR. GUILLAUME AND MADE AWARE OF CONSULT. SHE WILL BE IN TO SEE PT LATER TODAY.
--- NOTE | 2024-04-19 12:34 | PC.CC ---
Rounding note: Pt to remain pending echo.
--- NOTE | 2024-04-19 15:28 | XR_ITS ---
Examination: Venous duplex lower extremity sonogram, bilateral. Date and time of exam: April 19, 2024 1603 hrs. Indications: Left leg numbness beginning one week ago, history acute right leg DVT 2020 Technique: Multiple sonographic images of the deep venous system have been obtained. B-mode/2-D grayscale imaging of vascular structures and Doppler spectral analysis (waveforms) and color performed Both legs are examined. Findings: Deep venous systems do not demonstrate abnormal echogenicity. All visualized deep veins exhibit compressibility. All visualized deep veins exhibit augmentation. Impression: Negative for deep vein thrombosis
--- NOTE | 2024-04-19 19:27 | ESPR_ITS ---
Documentation for date of: 04/19/24 Subjective Subjective Interval history: The patient was evaluated bedside, overnight events and labs reviewed, still complaining of persistent paresthesias of the lower extremity, pending echocardiogram. We discussed about the need of outpatient follow-up with neurologist for the nonspecific MRI findings of punctate demyelinating foci. Patient understood and agreed with the plan, questions and concerns were answered to satisfaction. Exam Vital Signs Temp Pulse Resp BP Pulse Ox O2 Del Method 96.9 F 61 16 120/68 97 Room Air 04/19/24 16:00 04/19/24 16:00 04/19/24 16:00 04/19/24 16:00 04/19/24 16:00 04/19/24 16:00 Narrative Exam Physical Exam GENERAL: NAD, AAOx3 HEENT: Moist mucosa. Eyes open, symmetrical, & clear CARDIO: Heart RRR, no obvious murmurs PULM: No noted coughing/dyspnea CTA B/L, no R/W/R GI: Abdomen soft, nondistended, no pain on palpation. BSx4 SKIN/MSK/EXT: No wounds/rashes/edema/amputations, no pain on palpation. Pedal pulses present B/L NEURO: AAOx3, no focal neuro deficits, except altered sensation lower extremity, able to move all 4 extremities Objective Labs 04/19/24 05:24 04/19/24 05:24 Labs: Laboratory Results - last 24 hr 04/19/24 05:24 WBC 5.5 RBC 4.58 Hgb 14.4 Hct 41.1 MCV 90 MCH 31.4 MCHC 35.0 RDW Std Deviation 37.9 Plt Count 208 Neut % (Auto) 57 Lymph % (Auto) 32 Reynolds % (Auto) 9 Eos % (Auto) 2 Baso % (Auto) 1 Neut # (Auto) 3.1 Lymph # (Auto) 1.8 Reynolds # (Auto) 0.5 Eos # (Auto) 0.1 Baso # (Auto) 0.0 Immature Gran # (Auto) 0.01 H Absolute Nucleated RBC 0.00 Immature Gran % 0 Nucleated RBC % 0 Sodium 139 Potassium 4.4 Chloride 104 Carbon Dioxide 28.3 Anion Gap 7 BUN 15 Creatinine 1.0 Estim Creat Clear Calc 119.4 eGFR > 60 BUN/Creatinine Ratio 15 Glucose 92 Calculated Osmolality 278 Calcium 9.0 Corrected Calcium 9.0 Phosphorus 3.2 Magnesium 2.0 Total Bilirubin 0.5 AST 23 ALT 33 Alkaline Phosphatase 79 Total Protein 6.7 Albumin 4.2 Globulin 2.5 Albumin/Globulin Ratio 1.7 TSH 0.90 Quality Measures Quality Measures none Assessment & Plan Assessment Current Active Medications: Generic Name Dose Route Start Last Admin Trade Name Freq PRN Reason Stop Dose Admin Acetaminophen 650 mg 04/18/24 00:51 Acetaminophen 325 Mg Tablet PO 05/18/24 00:50 Q6H PRN Fever >100.5 Acetaminophen 650 mg 04/18/24 00:51 Acetaminophen 325 Mg Tablet PO 05/18/24 00:50 Q6H PRN PAIN SCALE 1-3 (mild Aspirin 81 mg 04/19/24 09:00 04/19/24 08:47 Aspirin 81 Mg Chew PO 05/19/24 08:59 81 mg QDAY RUTH ANN Administration Atorvastatin Calcium 80 mg 04/18/24 21:00 04/18/24 21:46 Atorvastatin Calcium 20 Mg Tablet PO 05/18/24 20:59 80 mg HS RUTH ANN Administration Clopidogrel Bisulfate 75 mg 04/19/24 09:00 04/19/24 08:47 Clopidogrel Bisulfate 75 Mg Tablet PO 05/19/24 08:59 75 mg QDAY RUTH ANN Administration Heparin Sodium (Porcine) 5,000 unit 04/18/24 06:00 04/19/24 15:03 Heparin Sod Inj 5000 Unit/Ml Vial SC 05/02/24 05:59 5,000 unit Q8HR RUTH ANN Administration Ondansetron HCl 4 mg 04/18/24 00:51 Ondansetron Inj 2 Mg/Ml Inj 2 Ml IV 05/18/24 00:50 Q6H PRN NAUSEA OR VOMITING Protocol Pantoprazole Sodium 40 mg 04/18/24 09:00 04/19/24 08:47 Pantoprazole 40 Mg Tablet PO 05/18/24 08:59 40 mg QDAY RUTH ANN Administration Sennosides 1 tab 04/18/24 00:51 Senna Tablet PO 05/18/24 00:50 QDAY PRN constipation Protocol Plan 43-year-old male patient with past medical history of DVT in 2020 was on Eliquis for 1 year, presented to the ED due to sudden onset of right leg numbness that started suddenly and continued to worsen to involve with right upper extremity. Patient was admitted for stroke workup versus TIA versus seizure. #Transient ischemic attack #Seizure- low suspicion Presentation patient started with numbness of the right lower extremity that progressed to the right upper extremity as well as associated slurred speech and headache, per the patient he states episodes lasted less than [address] brain was negative for any hemorrhage or mass effect Patient has remote history of DVT was on Eliquis for about 1 year and that was discontinued Patient was started on aspirin 325 x 1, Plavix 300 mg p.o. x 1 Per patient at this time is returned to baseline MRI brain showed Scattered punctate foci increased signal in the cerebral white matter, demyelinating disease pattern -Follow-up EEG -Neurology Dr Thorpe consulted, appreciate recommendations -Aspirin 81 mg -Plavix 75 mg -Atorvastatin 80 mg -Follow-up echo with bubble study -Seizure precautions -Aspiration precautions -Normal saline 75 cc/h -Pending speech and physical therapy evaluation -HOB more than 30 degrees -Euglycemia, euthermic #History of palpitation #Right bundle branch block Patient reported some episodes of palpitation however denied any dizziness or loss of balance or chest pain EKG showed right bundle branch block ?Telemetry monitoring #History of DVT in 2020 Patient reported having DVT in his right leg and provoked, used Eliquis for 1 year and was discontinued by the hydrochloric manufacturing supervisor Dr. Azar ?Will monitor at this time Case discussed with my attending Dr. Madhav oropeza pgy2 Disposition: Telemetry Fluids: Normal saline Feeding: Regular after passing speech eval Thrombo prophylaxis: Heparin Gastric Ulcer prophylaxis: Pantoprazole Physical therapy: Pending eval Speech therapy: Pending CODE STATUS: Full code
[2024-04-19] MEDS: ATORVASTATIN CALCIUM 20 MG TABLET 80 MG PO (21:04)
--- NOTE | 2024-04-19 21:56 | PD.VPROG1 ---
Telemedicine visit statement This visit was conducted with the use of phone was obtained on 04/19/24 at 2156. Documentation for date of: 04/19/24 Subjective Subjective Interval history: Patient presented with TIA like episode, no recurrence reported after admission. No complaints today. Virtual exam Vital Signs Temp Pulse Resp BP Pulse Ox O2 Del Method 96.9 F 74 16 129/77 97 Room Air 04/19/24 20:00 04/19/24 20:00 04/19/24 20:00 04/19/24 20:00 04/19/24 20:00 04/19/24 20:00 Objective Labs 04/19/24 05:24 04/19/24 05:24 Labs: Laboratory Results - last 24 hr 04/19/24 05:24 WBC 5.5 RBC 4.58 Hgb 14.4 Hct 41.1 MCV 90 MCH 31.4 MCHC 35.0 RDW Std Deviation 37.9 Plt Count 208 Neut % (Auto) 57 Lymph % (Auto) 32 Williams % (Auto) 9 Eos % (Auto) 2 Baso % (Auto) 1 Neut # (Auto) 3.1 Lymph # (Auto) 1.8 Williams # (Auto) 0.5 Eos # (Auto) 0.1 Baso # (Auto) 0.0 Immature Gran # (Auto) 0.01 H Absolute Nucleated RBC 0.00 Immature Gran % 0 Nucleated RBC % 0 Sodium 139 Potassium 4.4 Chloride 104 Carbon Dioxide 28.3 Anion Gap 7 BUN 15 Creatinine 1.0 Estim Creat Clear Calc 119.4 eGFR > 60 BUN/Creatinine Ratio 15 Glucose 92 Calculated Osmolality 278 Calcium 9.0 Corrected Calcium 9.0 Phosphorus 3.2 Magnesium 2.0 Total Bilirubin 0.5 AST 23 ALT 33 Alkaline Phosphatase 79 Total Protein 6.7 Albumin 4.2 Globulin 2.5 Albumin/Globulin Ratio 1.7 TSH 0.90 Assessment & Plan Problem List (1) Transient ischemic attack (TIA): Status: Acute Assessment and plan: EEG: showed normal study MRI brain: nonspecific white matter changes, not consistent with demyelination. Continue with ASA 81 mg for now. FU with Echo.
[2024-04-20] VITALS: BP 124/75; PULSE 60; PULSE 68; RESP 16; TEMP 36.4; O2SAT 96
[2024-04-20 04:00] VITALS: BP 117/78; PULSE 53; PULSE 58; RESP 14; TEMP 36.4; O2SAT 98
[2024-04-20 06:00] VITALS: BMI 33.3
[2024-04-20 06:03] LABS: Basophils % (Auto) 1 % (0-2.5); Eosinophils # (Auto) 0.1 Thou/mm3 (0.0-0.5); Eosinophils % (Auto) 2 % (0-10); Hematocrit 41.2 % (41.0-53.0); Hemoglobin 14.4 g/dL (13.5-16.0); Immature Granulocytes % (Auto) 0 % (0-0); Immature Granulocytes Auto 0.01 Thou/mm3 (0.00-0.00); Lymphocytes # (Auto) 2.1 Thou/mm3 (1.0-4.8); Lymphocytes % (Auto) 32 % (10-50); Mean Corpuscular Hemoglobin 30.7 pg (25.0-35.0); Mean Corpuscular Volume 88 fL (80-100); Monocytes # (Auto) 0.5 Thou/mm3 (0.0-0.8); Monocytes % (Auto) 8 % (0-12); Neutrophils # (Auto) 3.9 Thou/mm3 (1.8-7.7); Neutrophils % (Auto) 58 % (37-80); Nucleated Red Blood Cell % 0 /100 WBC (0); Platelet Count 229 Thou/mm3 (140-440); RDW Standard Deviation 37.3 fL (35.1-43.9); Red Blood Count 4.69 Miln/mm3 (4.50-5.90); White Blood Count 6.6 Thou/mm3 (3.8-10.6)
[2024-04-20] MEDS: HEPARIN SOD INJ 5000 UNIT/ML VIAL SC ×2 (06:15→13:09)
[2024-04-20 06:22] LABS: Alanine Aminotransferase 34 U/L (10-49); Albumin, Serum 4.1 gm/dL (3.5-5.0); Albumin/Globulin Ratio 1.5 (1.2-2.2); Alkaline Phosphatase 86 U/L (46-116); Anion Gap 6 (7-16); Aspartate Amino Transferase 26 U/L (0-34); BUN/Creatinine Ratio 11 Ratio (12-20); Bilirubin,Total 0.4 mg/dL (0.3-1.2); Blood Urea Nitrogen 11 mg/dL (9-23); Calcium 9.1 mg/dL (8.3-10.6); Calcium (Corrected) 9.1 mg/dL (8.5-10.1); Carbon Dioxide 28.2 mMol/L (20.0-31.0); Chloride 106 mMol/L (98-107); Estimated Creatinine Clearance 120.5 mL/min (>60); Globulin 2.7 gm/dL (2.3-3.5); Glucose 97 mg/dL (74-106); Osmolality,Calculated 278 (275-295); Phosphorous 3.2 mg/dL (2.4-5.1); Potassium 4.1 mMol/L (3.4-5.1); Sodium 140 mMol/L (136-145); Total Protein 6.8 gm/dL (5.7-8.2); eGFR > 60 See Note
[2024-04-20 07:23] VITALS: PULSE 58; RESP 16; RESP 98
[2024-04-20 08:00] VITALS: BP 121/71; PULSE 60; PULSE 68; RESP 15; TEMP 36.1; O2SAT 97
[2024-04-20] MEDS: PANTOPRAZOLE 40 MG TABLET PO (08:43)
[2024-04-20] MEDS: ASPIRIN 81 MG CHEW PO (08:43)
--- NOTE | 2024-04-20 09:05 | PC.SS ---
Follow up note: Waiting for ECHO. Pt will return home upon dc.
--- NOTE | 2024-04-20 09:07 | PC.SS ---
Follow up note: Waiting for ECHO.
[2024-04-20 12:00] VITALS: BP 127/71; PULSE 61; PULSE 63; RESP 21; TEMP 36.1; O2SAT 97
--- NOTE | 2024-04-20 13:54 | PC.NURSE ---
Patient and have questions about discharge notified Dr. Whatley. He will come and talk to patient and . Once all questions are answered I will continue with discharge
--- NOTE | 2024-04-20 14:51 | PD.RESDS ---
Planned Discharge Date 04/20/24 DS: Providers Provider Date of admission: 04/18/24 00:51 Primary care physician: Chang Fox MD Admitting Provider: Chauncey Sanchez MD Attending Provider on Admission: Flower Corey MD Consults: 04/17/24 19:27 Consult to Neurology / Tele-Neurology Routine Comment: Consulting Provider: [facility] 04/18/24 00:58 Referral Physical Therapy Stat Comment: Physician Instructions: 04/18/24 01:02 Consult to Neurology / Tele-Neurology Stat Comment: stroke Consulting Provider: Fernando Thorpe Attending Provider on DC: Flower Corey MD Discharging Provider: Mariano Gamez MD Anticipated date of discharge: 04/20/24 DS: Diagnosis Problem List Completed Was Problem List Reviewed/Reconciled?: Yes Hospital Course Hospital Course Hospital course: 43-year-old male patient with past medical history of DVT in 2020 was on Eliquis for 1 year, presented to the ED due to sudden onset of right leg numbness that started suddenly and continued to worsen to involve with right upper extremity. Admitted to r/o stroke vs Seizure episode. During hospital stay patient underwent stroke work up which includes head CT which was found to be negative, MRI of the brain which also found negative, echocardiogram was done showed no signs of PFO or atrial septal defect. Patient was started on aspirin, high-dose statin, Plavix. Patient was evaluated by physical and speech therapy found no abnormalities with swallow nor ambulation. There was concern for seizure for which EEG was ordered and found no activity. Patient at this time is medically stable for discharge. Please follow-up with your primary care physician within 5 days of discharge from hospital, continue with aspirin 81 mg/day and atorvastatin 40 mg every night. Recommend following up with neurologist with within 2 weeks of discharge from the hospital. In case of worsening symptoms please return to the emergency room. Problem list: #Transient ischemic attack #Seizure- low suspicion #History of palpitation #Right bundle branch block #History of DVT in 2020 Case discussed with my senior Dr. Whatley PGY-[address] Madhav Gamez MD PGY-1 Senior resident attestation: Patient evaluated and examined at the bedside, plan of care discussed with rest of the team including my attending physician, except as noted. Please follow-up with your primary care physician within 5 days of discharge from hospital, continue with aspirin 81 mg/day and atorvastatin 40 mg every night. Recommend following up with neurologist with within 2 weeks of discharge from the hospital. In case of worsening symptoms please return to the emergency room. [place] PGY2 Status at Discharge Functional status at discharge: independent ambulation Overall status at discharge: patient is back to baseline Time Spent with Patient Time attestation: Total time spent providing and/or coordinating discharge services: Time spent: Greater than 30 minutes Exam Vital Signs Temp Pulse Resp BP Pulse Ox O2 Del Method 96.9 F 63 21 H 127/71 97 Room Air 04/20/24 12:00 04/20/24 12:00 04/20/24 12:00 04/20/24 12:00 04/20/24 12:00 04/20/24 12:00 Narrative Exam Physical Exam GENERAL: NAD, AAOx3 HEENT: Moist mucosa. Eyes open, symmetrical, & clear CARDIO: Heart RRR, no obvious murmurs PULM: No noted coughing/dyspnea CTA B/L, no R/W/R GI: Abdomen soft, nondistended, no pain on palpation. BSx4 SKIN/MSK/EXT: No wounds/rashes/edema/amputations, no pain on palpation. Pedal pulses present B/L NEURO: AAOx3, no focal neuro deficits, able to move all 4 extremities Discharge Plan Plan Patient Disposition: HOME (Self Care) Care Plan Goals: Please follow-up with your primary care physician within 5 days of discharge from hospital, continue with aspirin 81 mg/day and atorvastatin 40 mg every night. Recommend following up with neurologist with within 2 weeks of discharge from the hospital. In case of worsening symptoms please return to the emergency room. Prescriptions/Referrals Prescriptions/Med Rec: New atorvastatin 40 mg tablet 40 mg PO HS 30 Days Qty: 30 0RF Continued aspirin 81 mg Tablet,Chewable 81 mg PO QDAY Referrals: Chang Fox([facility])MD [Primary Care Provider] - Patient/Caregiver Discharge Instructions Education Materials: What Is a TIA? Print Language: Cameroonian Stand Alone Forms: Noemy Award Info., Patient Portal Info Letter Discharge Order Discharge Orders: Discharge (Routine); Ordered 04/20/24 Ordered By: Mariano Gamez Quality Discharge Quality Measures VTE prophylaxis
== END 2024-04-20 14:19 | disposition home or self-care (01) | DRG 69 ==
LOC: SERX 04-18 00:25 → SERHOLD 04-18 01:16 → S2NX 04-18 08:17
PROVIDERS: Student in an Organized Health Care Education/Training Program; Admitting Provider Student in an Organized Health Care Education/Training Program; Emergency Provider Emergency Medicine; PCP Family Medicine; Visit Provider Internal Medicine
DX: G45.9 Transient cerebral ischemic attack, unspecified (principal); G37.9 Demyelinating disease of central nervous system, unspecified; R47.81 Slurred speech; I45.10 Unspecified right bundle-branch block; Z86.718 Personal history of other venous thrombosis and embolism
CPT/HCPCS: 36415; 70450; 70496; 70498; 70551; 80053; 80061; 80307; 83036; 83735; 84100; 84443; 84484; 85025; 85610; 85730; 92610; 93005; 93306; 93970; 95816; 96372; 97162; 99291; A4649; J1643; J7030; Q9967; A9270